=== PATIENT | female | born 1990 | race Caucasian/White ===

== ENCOUNTER 2018-07-03 15:45 | Observation (INO) | payer MEDICAID, SELFPAY ==
[2018-07-03 16:13] LABS: Abs Immature Grans 0.19 k/cumm (0.0-0.09); Absolute Basophil Count 0.01 k/cumm (0.0-0.2); Absolute Eosinophil Count 0.05 k/cumm (0.0-0.7); Absolute Lymphocyte Count 2.07 k/cumm (1.2-3.4); Absolute Monocyte Count 0.73 k/cumm (0.11-0.7); Absolute Neutrophil Count 10.53 k/cumm (1.2-6.7); Basophils % 0.1; Eosinophils % 0.4; HGB 11.7 g/dL (12.0-15.5); Immature Grans % 1.4; Lymphocytes % 15.2; Mean Corp. HGB Concentration 34.4 g/dL (32.0-36.0); Mean Corpuscular Volume 95.8 fL (80-95); Mean Platelet Volume 10.7 fL (8.0-11.0); Monocytes % 5.4; Neutrophils % 77.5; Platelet Count 161 x1000/uL (130-400); RBC 3.55 m/cumm (4.00-5.20); RBC Distribution Width 12.7 % (11.7-14.6); White Blood Cell Count 13.59 k/cumm (4.4-10.8)
[2018-07-03 16:28] LABS: ALT 17 U/L (12-78); AST 14 U/L (15-37); Albumin 3.1 g/dL (3.4-5.0); Alkaline Phosphatase 51 U/L (46-116); Anion Gap 9.6 mmol/L (3-11); BUN 9 mg/dL (7-18); Bilirubin, Total 0.2 mg/dL (0.2-1.0); CO2 22.4 mmol/L (21.0-32.0); CREATININE 0.53 mg/dL (0.55-1.02); Calcium 8.2 mg/dL (8.5-10.1); Chloride 105 mmol/L (98-107); Glucose 89 mg/dL (70-100); Potassium 3.6 mmol/L (3.5-5.1); Sodium 137 mmol/L (136-145); Total Protein 6.5 g/dL (6.4-8.2)
[2018-07-03 17:13] LABS: Bilirubin Negative (Negative); Blood Negative (Negative); Clarity Sl Cloudy; Glucose Negative (Negative); Ketones Negative (Negative); Leukocyte Esterase Negative (Negative); Nitrite Negative (Negative); Specific Gravity 1.015 (1.005-1.025); Urobilinogen 0.2 EU/dL (Up TO 0.2)
[2018-07-03 17:32] LABS: *AMPHETAMINES SCREEN URINE Negative (Negative); *BARBITURATES SCREEN URINE Negative (Negative); *BENZODIAZEPINES SCREEN URINE Negative (Negative); Cannabinoids THC Negative (Negative); Cocaine Screen,Urine Negative (Negative); METHADONE URINE SCREEN Negative (Negative); OPIATES URINE SCREEN Negative (Negative); Tricyclic Antidepressants Negative (Negative)
== END 2018-07-03 18:05 | disposition home or self-care (01) ==
PROVIDERS: Admitting Provider Midwife; Visit Provider Midwife
DX: O26.892 Other specified pregnancy related conditions, second trimester (principal); R00.2 Palpitations; Z3A.25 25 weeks gestation of pregnancy
CPT/HCPCS: 80053; 80307; 81003; 84443; 85025; 87086; 93005; 93010; G0378

== ENCOUNTER 2018-07-20 09:15 | Outpatient (CLI) | payer MEDICAID, SELFPAY ==
[2018-07-20 15:06] LABS: HCT 34.1 % (36.0-46.0); HGB 11.9 g/dL (12.0-15.5); Mean Corp. HGB Concentration 34.9 g/dL (32.0-36.0); Mean Corpuscular Hemoglobin 33.6 pg (27.0-33.0); Mean Corpuscular Volume 96.3 fL (80-95); Mean Platelet Volume 10.7 fL (8.0-11.0); Platelet Count 153 x1000/uL (130-400); RBC 3.54 m/cumm (4.00-5.20); RBC Distribution Width 12.9 % (11.7-14.6); White Blood Cell Count 14.85 k/cumm (4.4-10.8)
[2018-07-20 15:20] LABS: Glucose,1 Hr (Glucola) 110 mg/dL (80-140)
--- NOTE | 2018-09-18 15:40 | CER_ITS ---
DATE OF DICTATION: September 18, 2018 [facility] [employer] LEGAL RESEARCH ANALYST REPORT MONITOR IN PLACE: July 20 - August 18, 2018 Baseline rhythm sinus. No atrial fibrillation identified. Rare ventricular ectopy (less than 1%) identified. One stable event recorded, sinus rhythm 82 bpm. No symptoms. Average heart rate 83 bpm, range 64-130 bpm. MH/dml D/
== END 2018-07-20 09:35 ==
PROVIDERS: Visit Provider Advanced Practice Midwife
DX: Z34.82 Encounter for supervision of other normal pregnancy, second trimester (principal); Z36.89 Encounter for other specified antenatal screening; R00.0 Tachycardia, unspecified
CPT/HCPCS: 36415; 82950; 85027; 86850; 93270

== ENCOUNTER 2018-08-28 14:47 | Outpatient (REF) | payer MEDICAID, SELFPAY | END 2018-08-28 15:07 | LOC: LBN 14:47 | PROVIDERS: Visit Provider Advanced Practice Midwife | DX: N89.8 Other specified noninflammatory disorders of vagina (principal) | CPT/HCPCS: 87480; 87510; 87660 ==

== ENCOUNTER 2018-09-25 16:42 | Outpatient (REF) | payer MEDICAID, SELFPAY | END 2018-09-25 17:02 | LOC: LBN 16:42 | PROVIDERS: Visit Provider Advanced Practice Midwife | DX: Z34.93 Encounter for supervision of normal pregnancy, unspecified, third trimester (principal); Z36.85 Encounter for antenatal screening for Streptococcus B | CPT/HCPCS: 87081 ==

== ENCOUNTER 2018-10-10 06:20 | Inpatient (IN) | payer MEDICAID, SELFPAY ==
[2018-10-10 10:52] LABS: HCT 36.7 % (36.0-46.0); HGB 12.5 g/dL (12.0-15.5); Mean Corp. HGB Concentration 34.1 g/dL (32.0-36.0); Mean Corpuscular Hemoglobin 32.9 pg (27.0-33.0); Mean Corpuscular Volume 96.6 fL (80-95); Mean Platelet Volume 10.9 fL (8.0-11.0); Platelet Count 167 x1000/uL (130-400); White Blood Cell Count 12.14 k/cumm (4.4-10.8)
[2018-10-10] MEDS: Ibuprofen 600 MG TAB (19:04)
[2018-10-10] MEDS: Acetaminophen 325 MG TAB (19:05)
[2018-10-10] MEDS: Hamamelis Leaf/Glycerin 100 EACH BOX PR (21:28)
[2018-10-11] MEDS: Normal Saline Flush 10 ML SYR IVP ×2 (00:40→12:07)
[2018-10-11] MEDS: Acetaminophen 325 MG TAB 650 MG PO ×3 (00:40→19:28)
[2018-10-11] MEDS: Ibuprofen 600 MG TAB PO ×3 (00:40→21:30)
[2018-10-11 07:24] LABS: HCT 34.8 % (36.0-46.0); HGB 11.8 g/dL (12.0-15.5); Mean Corp. HGB Concentration 33.9 g/dL (32.0-36.0); Mean Corpuscular Hemoglobin 32.8 pg (27.0-33.0); Mean Corpuscular Volume 96.7 fL (80-95); Mean Platelet Volume 10.9 fL (8.0-11.0); Platelet Count 162 x1000/uL (130-400); RBC Distribution Width 12.9 % (11.7-14.6); White Blood Cell Count 13.11 k/cumm (4.4-10.8)
--- NOTE | 2018-10-11 09:23 | W.PM.HP.N ---
Date of service: 10/11/18 Time of Service: 09:23 Assessment and Plan (1) Request for sterilization: Current visit: Yes Status: Acute I reviewed the risks and benefits of the procedure including the risk of infection damage to surrounding structures and bleeding. She states that she has no interest in alternative methods of contraception and wishes to proceed with surgery. Informed consent was obtained she will remain n.p.o. and have the tubal sterilization today. I recommended a bilateral salpingectomy for the procedure. History of Present Illness Chief Complaint: Multiparity desiring permanent sterilization Narrative: Patient is a 28-year old G2 now P2 female who underwent a spontaneous vaginal delivery on 10/10/2018 at 39-2/7 weeks estimated gestational age patient had been concerned counseled during this regarding permanent sterilization and had signed her federal consent first tubal sterilization on 07/12/2018. She been counseled regarding the permanent nature of the procedure the alternatives to permanent sterilization for contraception including long-acting reversible contraception and the chance of regret if her life circumstances were to change in the future. Patient reviewed the possible options for control and decided on permanent sterilization. Review of Systems Review of Systems Underwent a spontaneous vaginal delivery without complications last evening. She reports that she feels tired but is otherwise well. Constitutional Reports body ache(s) and Reports fatigue Cardiovascular Reports as per HPI Respiratory Reports system reviewed and no additional complaints, except as docu Gastrointestinal Comments: She has been n.p.o. after midnight and feels hungry. Genitourinary Comments: She reports that her fundus has remained below the umbilicus that her lochia has remained moderate and she is having mild uterine contractions after delivery. Integumentary/Breasts Reports system reviewed and no additional complaints, except as docu Endocrine Reports fatigue PFSH Cervical dysplasia Murmur Tobacco smoke exposure Tachycardia (Acute ~05/2018) History of asthma (Resolved) OM (otitis media) (Resolved) Pneumonia (Resolved) Family History Grandmother No problems noted. Grandfather No problems noted. 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 [employer] Smoking/Tobacco Use Status: Former Tobacco Use alcohol intake: never substance use type: does not use Meds Home Medications Medication Instructions Recorded Confirmed Type [id number] fum-folic 1 tab PO DAILY 02/22/18 10/10/18 History [] breast pump #1 each 10/04/18 10/09/18 Rx Allergies Allergy/AdvReac Type Severity Reaction Status Date / Time No Known Allergies Allergy Unverified 10/09/18 12:49 Exam Const General: cooperative, comfortable and no acute distress Nutritional Appearance: average body habitus Orientation: alert, awake and oriented x3 Chest Chest: normal inspection of the chest Resp Effort & Inspection: normal respiratory effort Auscultation: clear to auscultation bilaterally Cardio Jugular venous pressure: no JVD Palpation: normal PMI Rate: regular rate Rhythm: regular rhythm Heart Sounds: S1 normal and S2 normal GI Inspection: normal to inspection General: deferred and other (Fundus firm at the umbilicus) Skin General skin exam: no rashes or lesions noted Extrem General: other (Review of refill, sensation, and motion are intact) Results Labs : 10/11/18 07:11 Laboratory Results - last 24 hr 10/10/18 10/10/18 10/11/18 10:29 10:29 07:11 WBC 12.14 H 13.11 H RBC 3.80 L 3.60 L Hgb 12.5 11.8 L Hct 36.7 34.8 L MCV 96.6 H 96.7 H MCH 32.9 32.8 MCHC 34.1 33.9 RDW 13.0 12.9 Plt Count 167 162 MPV 10.9 10.9 Patient ABO/Rh O Positive Antibody Screen Negative
[2018-10-11] MEDS: Lactated Ringers 1,000 ML 200 ML IV (10:17)
--- NOTE | 2018-10-11 11:05 | FALL_PTH ---
PATIENT: JUSTO VAIL LOC: OBS U#:[id number] AGE/SX: 28/F ROOM: OBS.300 RE10/11/[address]: Buelah Grullon RN : 1990 BED: A DIS: 10/12/2018 SPEC #: [id number] RECD: 10/11/18 12:03 STATUS: YOCASTA REQ #: [id number] WEST: 10/11/18 11:[address]: Josey Brown DEPT: Surgical Specimen RECD BY: Adriane Benton ENTERED: 10/11/18 12:04 SP TYPE: Fall OTHR DR: None Beulah Grullon RN Tissues: 1 - FALLOPIAN TUBE (STERILIZATION) 2 - FALLOPIAN TUBE (STERILIZATION) Procedures: GROSS AND MICRO LEVEL 2 Comments: [id number]
[2018-10-11] MEDS: Bupivacaine 0.25% Pres-Free 30 ML VIAL (11:24)
[2018-10-11 11:33] VITALS: BP 128/84; PULSE 78; RESP 14; TEMP 36.5; O2SAT 96
[2018-10-11 11:38] VITALS: BP 145/93; PULSE 70; RESP 14; TEMP 36.5; O2SAT 97
[2018-10-11 11:43] VITALS: BP 143/103; PULSE 75; RESP 17; TEMP 36.5; O2SAT 97
[2018-10-11] MEDS: fentaNYL 100 MCG/2 ML VIAL IVP ×2 (11:45→11:50)
[2018-10-11 11:48] VITALS: BP 122/87; PULSE 71; RESP 15; TEMP 36.5; O2SAT 99
[2018-10-11 11:57] LABS: Varicella IgG Antibody Positive
[2018-10-11 12:00] VITALS: BP 128/90; PULSE 60; RESP 15; TEMP 37; O2SAT 97
[2018-10-11] MEDS: HYDROmorphone 2 MG/ML VIAL IVP (12:07)
[2018-10-11 12:15] VITALS: BP 120/78; PULSE 63; RESP 16; TEMP 37; O2SAT 97
[2018-10-11 12:18] LABS: Rubella IgG Ab (UVM) Negative
[2018-10-11] MEDS: Ketorolac 30 MG/ML VIAL IVP (13:01)
[2018-10-11] MEDS: oxyCODONE 5 mg/Acetaminophen 325 mg TAB PO ×2 (17:25→21:29)
[2018-10-11] MEDS: Docusate Sodium 100 MG CAP PO (19:28)
[2018-10-12] MEDS: Acetaminophen 325 MG TAB 650 MG PO (03:06)
[2018-10-12] MEDS: Ibuprofen 600 MG TAB PO (03:07)
--- NOTE | 2018-10-12 08:46 | W.PM.DS.N ---
Date of service: 10/12/18 Time of Service: 08:46 DS: Diagnosis Discharge Diagnosis (1) Request for sterilization: Status: Acute (2) Vaginal delivery: Status: Acute Discharge Plan Disposition Patient Disposition: HOME Condition: Good Discharge Details Reason For Visit: TUBAL LIGATION Admit Date/Time: 10/11/18 09:14 Admit Provider: Beulah Grullon Attending Provider: Beulah Grullon Primary Care Provider: None,None Hospital Course Hospital Course: Augmentation of labor. male infant: Dajuan. PP tubal sterilization 10/11/18. Home Meds and New Rx's Prescriptions: No Action breast pump device .Route .MEDSUPPLY Qty: 1 RF: 0 oxycodone-acetaminophen [Percocet] 5-325 mg tablet 1 tab PO Q6H MDD 4 PRN (Reason: pain) Qty: 5 RF: 0 ibuprofen 600 mg tablet 600 mg PO QID PRN (Reason: pain) Qty: 30 RF: 0 [id number] fum-folic [] 1 EACH tablet 1 tab PO DAILY RF: 0 Discharge Instructions Additional Instructions: Watch your baby for early feeding cues, to know when your baby is hungry (mouth movements, turns toward finger if cheek gently stroked, sucking on finger or fist). Crying is a late sign of hunger. Expect that your baby will want to eat about every 1.5-3 hours (8-12 feedings per day). If your baby isn't asking to feed, wake your baby for feedings, at least every 3 hours. Once latched, some newborns need encouragement to feed actively throughout a feeding. Breast massage, combined with deep breast compressions, are usually effective in keeping babies awake, and drinking well. Signs that your baby is well include sustained bursts of sucking (10 or more strong sucks in a row, before short pauses, in a full term ), deep and rhythmic jaw movements, frequent swallowing (once milk has come in ), and contentment between feedings. Also, once your milk is in, expect at least 6-8 wet diapers, and 4-6 seedy, loose, yellow bms (poops) everyday. Your baby should return to weight by 10-14 days old. Contact your baby's medical provider if your baby isn't reaching the above goals, or with any concerns about your baby. Also seek help for any of the following: difficulty latching/feeding your baby fussiness or sleepy behaviors at the breast painful if thinking about stopping if you haven't experienced increased breast fullness or size by 5 days after if you have any nipple breakdown/trauma any questions or concerns [facility] [place] [facility] (23/05 availbility) Or Toll Free Mother's Discharge Instructions Please call the Center 24 hours a day with questions about yourself or your baby. Rest: Take it easy! For the first two weeks, just take care of you and your baby. Sleep when your baby does. Limit visitors. Fathers and family members or friends can help by doing housework, cooking, caring for other children. Do not lift anything heavier than your baby. Gradually increase your activity over 6 weeks. Idania Care: For the next two weeks, use your plastic squeeze bottle filled with warm water to rinse yourself every time you urinate or have a bowel movement. Sit in a clean tub with fresh, warm water for 15-20 minutes a few times a day. You may use Tucks pads purchased from the [facility] to relieve discomfort from stiches or hemorrhoids. Call your provider if you have increased swelling or pain around your episiotomy or have difficulties with urination. Lochia (flow): Your flow should be no heavier than a normal period. It will be bright red for 2-3 days, then pinkish and finally colorless. If you flow becomes bright red again, decrease your activity. Do not use tampons until your care provider advises you it is OK. Call your provider if you experience heavy bright red flow (more than one pad per hour) or your flow has a foul smelling odor. Sexual Relations/Contraception: Check with your Provider for advice on when to resume sexual relations with your partner. Make sure you are comfortable. Use extra lubrication, such as KY jelly (not vaseline) or other vaginal lubricant. USE CONTRACEPTION... you can get even if you are or have not yet had a period. Nutrition: What you eat after your baby is born is as important as what you ate before your baby was born. Eat a well balanced diet. Drink 6-8 glasses of fluid a day. Continue to take your vtiamins. A healthy diet will help you feel better and stay well. Emotions/Baby Blues: Following the of your baby, emotions can vary from omaira to exhaustion. In the first few days you may feel tired and anxious. You may have little control over your schedule. It is normal to have times when you feel sad or cry easily due to all the changes in hormone levels. This is called the Baby Blues. However, if these feelings continue or interfere with your ability to take care of yourself or your baby, or you have feelings of panic, anger, or fear of harming yourself or your baby, call your provider. Breast Care: Wear a well fitting bra to support your breasts. Refer to your handout in your discharge package for tips to relieve engorgement. Call your provider for persistent breast pain, chills, or fever over 100.8F. : Practice careful positioning and frequent feeding as demonstrated in the hospital. The printed information in your packet covers this in detail. Formula Feeding Mothers: Your milk will come in. Avoid stimulating your breasts. Do not let warm water from the shower fall on them. Ice packs to your breasts and Tylenol or Ibuprofen may be used to relieve the discomfort. Pain medication: Ibuprofen 600mg every 6hrs as needed for mild to moderate pain. Percocet 5/325mg one tablet every 6 hours as needed for pain. Do not take Tylenol and Percocet together, since Percocet has Tylenol in it. Keep your follow up appointment: one week with Dr. Brown to inspect your skin incision. Activity:: Activity as Tolerated Equipment/Supplies:: No Equipment Needed Diet:: As Tolerated Discharge Orders Discharge Orders: Discharge Order (Routine); Ordered 10/12/18 Ordered By: Josey Brown Discharge Data Discharge Date/Time-TO BE ENTERED AT DEPARTURE: 10/12/18 12:25 DS: Data Vitals/I&O Vitals and I&O: Vital Signs Temperature 98.6 F 10/11/18 12:15 Pulse 63 10/11/18 12:15 Respiratory Rate 16 10/11/18 12:15 Blood Pressure 120/78 10/11/18 12:15 Pulse Oximetry 97 10/11/18 12:15 Respiratory End-tidal CO2 30 10/11/18 12:00 Oxygen Delivery Method Room Air 10/11/18 12:15 Pain Level 5 10/12/18 03:07 Intake & Output 10/11/18 10/11/18 10/12/18 11:59 23:59 11:59 Intake Total 500 / 1200 700 / 1200 Balance 500 / 1200 700 / 1200 Weight 181 lb Intake: IV 500 / 1000 500 / 1000 Oral 200 / 200 Other: Emesis Description None None Labs on day of discharge: Labs from last 24 hours 10/10/18 10/10/18 10:29 10:29 Rubella IgG Antibody Negative VZV IgG Antibody Positive [facility] Medical History Encounter for sterilization (Acute) Request for sterilization (Acute) Cervical dysplasia Murmur Tobacco smoke exposure Tachycardia (Acute ~05/2018) History of asthma (Resolved) OM (otitis media) (Resolved) Pneumonia (Resolved) Social History household members: children and other number of children: 2 current occupational status: employed 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 Junior ROLLINS gayatri History History 2 Para 1 Hx # Term Pregnancies 2 Multiple births 0 Hx # Pregnancies 0 Ectopic pregnancies 0 AB induced 0 Hx Number of Living Children 2 AB spontaneous 0
--- NOTE | 2018-10-12 08:56 | DSE_ITS ---
Date of service: 10/12/18 Time of Service: 08:46 DS: Diagnosis Discharge Diagnosis (1) Request for sterilization: Status: Acute (2) Vaginal delivery: Status: Acute Discharge Plan Disposition Patient Disposition: HOME Condition: Good Discharge Details Reason For Visit: TUBAL LIGATION Admit Date/Time: 10/11/18 09:14 Admit Provider: Beulah Grullon Attending Provider: Beulah Grullon Primary Care Provider: None,None Hospital Course Hospital Course: Augmentation of labor. male infant: Dajuan. PP tubal sterilization 10/11/18. Home Meds and New Rx's Prescriptions: No Action breast pump device .Route .MEDSUPPLY Qty: 1 RF: 0 oxycodone-acetaminophen [Percocet] 5-325 mg tablet 1 tab PO Q6H MDD 4 PRN (Reason: pain) Qty: 5 RF: 0 ibuprofen 600 mg tablet 600 mg PO QID PRN (Reason: pain) Qty: 30 RF: 0 [id number] fum-folic [] 1 EACH tablet 1 tab PO DAILY RF: 0 Discharge Instructions Additional Instructions: Watch your baby for early feeding cues, to know when your baby is hungry (mouth movements, turns toward finger if cheek gently stroked, sucking on finger or fist). Crying is a late sign of hunger. Expect that your baby will want to eat about every 1.5-3 hours (8-12 feedings per day). If your baby isn't asking to feed, wake your baby for feedings, at least every 3 hours. Once latched, some newborns need encouragement to feed actively throughout a feeding. Breast massage, combined with deep breast compressions, are usually effective in keeping babies awake, and drinking well. Signs that your baby is well include sustained bursts of sucking (10 or more strong sucks in a row, before short pauses, in a full term ), deep and rhythmic jaw movements, frequent swallowing (once milk has come in ), and contentment between feedings. Also, once your milk is in, expect at least 6-8 wet diapers, and 4-6 seedy, loose, yellow bms (poops) everyday. Your baby should return to weight by 10-14 days old. Contact your baby's medical provider if your baby isn't reaching the above goals, or with any concerns about your baby. Also seek help for any of the following: * difficulty latching/feeding your baby * fussiness or sleepy behaviors at the breast * painful * if thinking about stopping * if you haven't experienced increased breast fullness or size by 5 days after * if you have any nipple breakdown/trauma * any questions or concerns [facility] [place] [facility] (23/05 availbility) Or Toll Free Mother's Discharge Instructions Please call the Center 24 hours a day with questions about yourself or your baby. Rest: Take it easy! For the first two weeks, just take care of you and your baby. Sleep when your baby does. Limit visitors. Fathers and family members or friends can help by doing housework, cooking, caring for other children. Do not lift anything heavier than your baby. Gradually increase your activity over 6 weeks. Idania Care: For the next two weeks, use your plastic squeeze bottle filled with w arm water to rinse yourself every time you urinate or have a bowel movement. Sit in a clean tub with fresh, warm water for 15-20 minutes a few times a day. You may use Tucks pads purchased from the [employer] to relieve discomfort from stiches or hemorrhoids. Call your provider if you have increased swelling or pain around your episiotomy or have difficulties with urination. Lochia (flow): Your flow should be no heavier than a normal period. It will be bright red for 2-3 days, then pinkish and finally colorless. If you flow becomes bright red again, decrease your activity. Do not use tampons until your care provider advises you it is OK. Call your provider if you experience heavy bright red flow (more than one pad per hour) or your flow has a foul smelling odor. Sexual Relations/Contraception: Check with your Provider for advice on when to resume sexual relations with your partner. Make sure you are comfortable. Use extra lubrication, such as KY jelly (not vaseline) or other vaginal lubricant. USE CONTRACEPTION... you can get even if you are or have not yet had a period. Nutrition: What you eat after your baby is born is as important as what you ate before your baby was born. Eat a well balanced diet. Drink 6-8 glasses of fluid a day. Continue to take your vtiamins. A healthy diet will help you feel better and stay well. Emotions/Baby Blues: Following the of your baby, emotions can vary from omaira to exhaustion. In the first few days you may feel tired and anxious. You may have little control over your schedule. It is normal to have times when you feel sad or cry easily due to all the changes in hormone levels. This is called the Baby Blues. However, if these feelings continue or interfere with your ability to take care of yourself or your baby, or you have feelings of panic, anger, or fear of harming yourself or your baby, call your provider. Breast Care: Wear a well fitting bra to support your breasts. Refer to your handout in your discharge package for tips to relieve engorgement. Call your provider for persistent breast pain, chills, or fever over 100.8F. : Practice careful positioning and frequent feeding as demonstrated in the hospital. The printed information in your packet covers this in detail. Formula Feeding Mothers: Your milk will come in. Avoid stimulating your breasts. Do not let warm water from the shower fall on them. Ice packs to your breasts and Tylenol or Ibuprofen may be used to relieve the discomfort. Pain medication: Ibuprofen 600mg every 6hrs as needed for mild to moderate pain. Percocet 5/325mg one tablet every 6 hours as needed for pain. Do not take Tylenol and Percocet together, since Percocet has Tylenol in it. Keep your follow up appointment: one week with Dr. Brown to inspect your skin incision. Activity:: Activity as Tolerated Equipment/Supplies:: No Equipment Needed Diet:: As Tolerated Discharge Orders Discharge Orders: Discharge Order (Routine); Ordered 10/12/18 Ordered By: Josey Brown Discharge Data Discharge Date/Time-TO BE ENTERED AT DEPARTURE: 10/12/18 12:25 DS: Data Vitals/I&O Vitals and I&O: Vital Signs Temperature 98.6 F 10/11/18 12:15 Pulse 63 10/11/18 12:15 Respiratory Rate 16 10/11/18 12:15 Blood Pressure 120/78 10/11/18 12:15 Pulse Oximetry 97 10/11/18 12:15 Respiratory End-tidal CO2 30 10/11/18 12:00 Oxygen Delivery Method Room Air 10/11/18 12:15 Pain Level 5 10/12/18 03:07 Intake & Output 10/11/18 10/11/18 10/12/18 11:59 23:59 11:59 Intake Total 500 / 1200 700 / 1200 Balance 500 / 1200 700 / 1200 Weight 181 lb Intake: IV 500 / 1000 500 / 1000 Oral 200 / 200 Other: Emesis Description None None Labs on day of discharge: Labs from last 24 hours 10/10/18 10/10/18 10:29 10:29 Rubella IgG Antibody Negative VZV IgG Antibody Positive [facility] Medical History Encounter for sterilization (Acute) Request for sterilization (Acute) Cervical dysplasia Murmur Tobacco smoke exposure Tachycardia (Acute ~05/2018) History of asthma (Resolved) OM (otitis media) (Resolved) Pneumonia (Resolved) Social History household members: children and other number of children: 2 current occupational status: employed 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 Junior ROLLINS gayatri History History 2 Para 1 Hx # Term Pregnancies 2 Multiple births 0 Hx # Pregnancies 0 Ectopic pregnancies 0 AB induced 0 Hx Number of Living Children 2 AB spontaneous 0
[2018-10-12] MEDS: oxyCODONE 5 mg/Acetaminophen 325 mg TAB PO (10:28)
--- NOTE | 2018-10-12 20:42 | W.PM.OP ---
Date of service: 10/11/18 Time of Service: 15:43 Operative Note DATE OF PROCEDURE: 10/11/18 PRE-OP DIAGNOSIS: Multiparity desiring permanent sterilization POST-OP DIAGNOSIS: same PROCEDURE: Bilateral salpingectomy via periumbilial laparotomy. ANESTHESIA: GETA and spinal ESTIMATED BLOOD LOSS: 0 PATHOLOGY: other (Bilateral fallopian tubes to pathology) COMPLICATIONS: None Patient was transported to: PACU Patient's condition: stable Implants: None Indications: 28-year-old female who expressed a desire for permanent sterilization during her antepartum course which was reaffirmed after spontaneous vaginal delivery on 10/10/2018. Findings: Normal fallopian tubes Procedure Description: Patient was taken to the operating room where she was placed in the sitting position and spinal anesthesia was administered by Roberto Carlos Longo CRNA. She was then placed in the dorsal supine position and prepped and draped in the usual sterile fashion 1 g of Ancef IV was administered prior to skin incision. When testing for the adequate level of anesthesia the patient continued to report painful sensation to light touch with a tooth forcep. Decision was made to proceed with general endotracheal anesthesia which was administered without difficulty. The periumbilical region was then infiltrated with 5 cc of quarter percent Marcaine without epinephrine and a skin incision was made in a transverse fashion below the umbilicus measuring 3 cm using a scalpel. The underlying subcutaneous tissue was dissected using blunt technique to the level of the rectus fascia. Rectus fascia was then tented up with [place] clamps and incised with Metzenbaum scissors and the underlying peritoneum was then grasped incised and clear entry into the abdomen was noted. The rectus fascia was tagged with 0 Vicryl suture the superior and inferior aspect of the fascial incision which were held long. The uterine fundus was located the left fallopian tube was identified grasped with a Fareed clamp and followed out to its fimbriated end a LigaSure device was used to grasp the proximal portion of the left fallopian tube at its attachments to the left uterine cornua it was then clamped cauterized and transected the remaining mesosalpinx was clamped cauterized and transected to the level of the fimbria. Once the fimbria had been detached from its mesosalpinx connections it was passed off of the operative field. The pedicle at the uterine cornua was inspected and noted to be hemostatic and as was the met meet the left met mesosalpinx a similar technique was carried out on the patient's right fallopian tube allowing for complete dissection of the tube from the mesosalpinx in cauterization and transection of the proximal portion of the fallopian tube from the right uterine cornua. Both pedicles were inspected at the completion of the procedure and noted to be hemostatic. The rectus fascia was then reapproximated with interrupted suture of 0 Vicryl both the lateral margins in the superior and inferior aspect of the incision. The skin was reapproximated with a subcuticular suture of 4-0 Monocryl and skin sealed with skin glue. The patient was then awakened extubated and transported to recovery room in stable condition all sponge lap needle counts correct x2 SCDs were in place during the procedure.
== END 2018-10-12 12:25 | disposition home or self-care (01) | DRG 798 ==
PROVIDERS: Obstetrics & Gynecology Gynecology; Admitting Provider Advanced Practice Midwife; Visit Provider Advanced Practice Midwife
PROC: 0UB70ZZ Excision of Bilateral Fallopian Tubes, Open Approach (ICD-10-PCS; CPT 58605; principal; 2018-10-11 08:30)
DX: O70.1 Second degree perineal laceration during delivery (principal); Z37.0 Single live birth; O69.81X0 Labor and delivery complicated by cord around neck, without compression, not applicable or unspecified; O42.02 Full-term premature rupture of membranes, onset of labor within 24 hours of rupture; Z3A.39 39 weeks gestation of pregnancy; Z30.2 Encounter for sterilization
CPT/HCPCS: 58605; 36415; 85027; 86787; 86850; 86900; 86901; 99221; 99238; 86762; 88302; J1100; J1885; J2250; J2405; J3490